=== PATIENT | male | born 1950 | race African-American/Black ===

== ENCOUNTER 2017-06-12 19:11 | Inpatient (IN) | payer MEDICARE, MEDICAID ==
[~2017-06-12] VITALS: Ht 152.4 cm; Wt 89.4 kg
[2017-06-12] MEDS ORDERED: ASPIRIN 81MG TABLET PO STA (21:41)
[2017-06-12] MEDS ORDERED: NITROGLYCERIN 0.4MG TABLET SL SL PRN (21:45)
[2017-06-12 23:06] LABS: BASOPHILS % 0.9 % (0.0-2.0); EOSINOPHILS % 6.6 % (0.0-5.0); HEMATOCRIT. 39.1 % (42.0-52.0); HEMOGLOBIN. 13.1 g/dL (14.0-18.0); LYMPHOCYTES % 37.1 % (20.0-50.0); MEAN CORPUSCULAR HEMOGLOBIN 32.3 pg (28.0-32.0); MEAN CORPUSCULAR VOLUME 96.7 fL (80.0-94.0); MEAN PLATELET VOLUME 8.9 fl (7.4-10.4); MONOCYTES % 7.2 % (2.0-8.0); NEUTROPHILS % 48.2 % (40.0-76.0); PLATELET 143 x1000/uL (130-400); RED BLOOD CELL COUNT 4.05 mill/uL (4.7-6.1); RED CELL DISTRIBUTION WIDTH 14.5 % (11.6-14.6)
[2017-06-12 23:14] LABS: CHLORIDE 107 mEq/L (98-107)
[2017-06-12 23:18] LABS: D-DIMER 0.26 mg/L FEU (<0.50); PARTIAL THROMBOPLASTIN TIME 26.5 sec (23.4-31.0); PROTHROMBIN TIME 10.8 sec (9.4-11.6)
[2017-06-12 23:23] LABS: TROPONIN I < 0.02 ng/mL (0.00-0.04)
[2017-06-13] MEDS ORDERED: IOHEXOL-350 100 ML BOTTLE ONE (02:19)
[2017-06-13 03:00] VITALS: BP 137/70
[2017-06-13] MEDS ORDERED: CARI350T PO (05:09)
[2017-06-13] MEDS ORDERED: APIX5TAB PO (05:09)
[2017-06-13] MEDS ORDERED: CARV12.545 PO (05:09)
[2017-06-13] MEDS ORDERED: HYDR-4001 PO (05:09)
[2017-06-13] MEDS ORDERED: AMLO10TA80 PO (05:09)
[2017-06-13] MEDS ORDERED: OMEPRAZOLE 20MG CAPSULE EXTENDED RELEASE PO SCH (07:10)
[2017-06-13] MEDS ORDERED: ONDANSETRON HCL 4MG/2ML VIAL IV PRN (07:15)
[2017-06-13] MEDS ORDERED: MORPHINE SULFATE 4 MG/ML CPJ (NOT FOR IM USE) IV PRN (07:15)
[2017-06-13 08:00] VITALS: BP 147/90
[2017-06-13] MEDS ORDERED: ENOXAPARIN 40MG/0.4ML SYR SUBCUT SCH (09:00)
[2017-06-13] MEDS ORDERED: CARVEDILOL 12.5MG TABLET PO SCH (09:30)
[2017-06-13] MEDS ORDERED: AMLODIPINE 10MG TABLET PO SCH (09:45)
[2017-06-13 11:08] LABS: BASOPHILS % 0.6 % (0.0-2.0); EOSINOPHILS % 7.5 % (0.0-5.0); HEMATOCRIT. 41.2 % (42.0-52.0); HEMOGLOBIN. 13.7 g/dL (14.0-18.0); LYMPHOCYTES % 33.3 % (20.0-50.0); MEAN CORPUSCULAR HEMOGLOBIN 32.5 pg (28.0-32.0); MEAN CORPUSCULAR VOLUME 97.6 fL (80.0-94.0); MEAN PLATELET VOLUME 9.4 fl (7.4-10.4); MONOCYTES % 6.3 % (2.0-8.0); NEUTROPHILS % 52.3 % (40.0-76.0); PLATELET 142 x1000/uL (130-400); RED BLOOD CELL COUNT 4.22 mill/uL (4.7-6.1); RED CELL DISTRIBUTION WIDTH 14.4 % (11.6-14.6)
[2017-06-13 11:22] LABS: CHLORIDE 106 mEq/L (98-107)
[2017-06-13 11:33] LABS: CREATINE KINASE 286 IU/L (39-308); CREATINE KINASE MB FRACTION 6.6 ng/mL (0.5-3.6); TROPONIN I < 0.02 ng/mL (0.00-0.04)
[2017-06-13] MEDS ORDERED: APIXABAN 5 MG TABLET PO SCH (17:00)
== END 2017-06-13 11:15 | disposition left against medical advice (07) | DRG 300 ==
LOC: ER 20:09 → EDBEDREQ 06-13 00:14 → EDBEDREQTM 06-13 00:14 → 8WST 06-13 00:14 → ENRESERV 06-13 02:33
PROVIDERS: ADMIT Family Medicine Adult Medicine; ATTEND Family Medicine Adult Medicine
DX: I82.492 Acute embolism and thrombosis of other specified deep vein of left lower extremity (principal); I24.9 Acute ischemic heart disease, unspecified; I11.9 Hypertensive heart disease without heart failure; F17.210 Nicotine dependence, cigarettes, uncomplicated; R07.89 Other chest pain; Z96.659 Presence of unspecified artificial knee joint; I51.7 Cardiomegaly
CPT/HCPCS: 36415; 71045; 71275; 80048; 80053; 80061; 82550; 82553; 83735; 83880; 84443; 84484; 85025; 85379; 85610; 85730; 93005; 93970; 99285; J1650; J2270; Q9967

== ENCOUNTER 2018-08-16 19:42 | Emergency (ER) | payer MEDICARE, MEDICAID ==
[~2018-08-16] VITALS: Ht 170.2 cm; Wt 84.0 kg
[~2018-08-16 19:42] MED LIST: AMLO10TA80 PO; APIX5TAB PO; CARV12.545 PO; DIAZ10TA MT; HYDR-4001 PO; S350 PO
[2018-08-16] MEDS ORDERED: ALBUTEROL (0.083%) 2.5MG/3ML NEB HHN STA (21:13)
[2018-08-16] MEDS ORDERED: IPRATROPIUM BROMIDE (0.02%) 0.5MG/2.5ML NEB HHN STA (21:13)
[2018-08-16] MEDS ORDERED: DEXAMETHASONE 10 MG/ML VIAL IM ONE (21:15)
[2018-08-17 01:30] VITALS: BP 130/83
== END 2018-08-17 02:21 | disposition home or self-care (01) ==
LOC: ER 19:42
DX: J98.01 Acute bronchospasm (principal); I10 Essential (primary) hypertension; F32.9 Major depressive disorder, single episode, unspecified; F17.210 Nicotine dependence, cigarettes, uncomplicated; Z96.659 Presence of unspecified artificial knee joint; Z71.6 Tobacco abuse counseling
CPT/HCPCS: 71045; 93005; 94640; 96372; 99283; 99406; J1100; J7611

== ENCOUNTER 2018-08-17 02:31 | Emergency (ER) | payer MEDICARE, MEDICAID ==
[~2018-08-17] VITALS: Ht 175.3 cm; Wt 99.0 kg
[2018-08-17] MEDS ORDERED: ACETAMINOPHEN 325MG TABLET PO ONE (04:15)
[2018-08-17] MEDS ORDERED: ALBUTEROL (0.083%) 2.5MG/3ML NEB HHN STA ×2 (05:18)
[2018-08-17] MEDS ORDERED: IPRATROPIUM BROMIDE (0.02%) 0.5MG/2.5ML NEB HHN STA ×2 (05:18)
[2018-08-17 05:30] VITALS: BP 128/84
== END 2018-08-17 06:11 | disposition home or self-care (01) ==
LOC: ER 02:31
DX: M79.604 Pain in right leg (principal); J44.9 Chronic obstructive pulmonary disease, unspecified; F32.9 Major depressive disorder, single episode, unspecified; I10 Essential (primary) hypertension; Z96.653 Presence of artificial knee joint, bilateral; Z86.718 Personal history of other venous thrombosis and embolism; Z79.01 Long term (current) use of anticoagulants
CPT/HCPCS: 93971; 99284; J7611

== ENCOUNTER 2018-08-24 22:31 | Emergency (ER) | payer MEDICARE, MEDICAID ==
[~2018-08-24] VITALS: Ht 172.7 cm; Wt 100.0 kg
[2018-08-24] MEDS ORDERED: ALBUTEROL (0.083%) 2.5MG/3ML NEB HHN STA (23:28)
[2018-08-24] MEDS ORDERED: PREDNISONE 20MG TABLET PO STA (23:28)
[2018-08-24] MEDS ORDERED: IPRATROPIUM BROMIDE (0.02%) 0.5MG/2.5ML NEB HHN STA (23:28)
[2018-08-24] MEDS ORDERED: HYDROCODONE/ACETAMINOPHEN 5/325MG TABLET PO ONE (23:30)
[2018-08-25 03:22] VITALS: BP 121/64
== END 2018-08-25 04:58 | disposition home or self-care (01) ==
LOC: ER 22:31
DX: J44.1 Chronic obstructive pulmonary disease with (acute) exacerbation (principal); F12.10 Cannabis abuse, uncomplicated; I10 Essential (primary) hypertension; F32.9 Major depressive disorder, single episode, unspecified; F17.290 Nicotine dependence, other tobacco product, uncomplicated; Z79.899 Other long term (current) drug therapy; Z86.718 Personal history of other venous thrombosis and embolism; Z96.659 Presence of unspecified artificial knee joint
CPT/HCPCS: 93005; 94640; 99284; 99406; J7512; J7611

== ENCOUNTER 2018-10-17 11:10 | Emergency (ER) | payer BC, MEDICAID ==
[~2018-10-17] VITALS: Ht 175.3 cm; Wt 96.0 kg
[2018-10-17] MEDS ORDERED: HYDROCODONE/ACETAMINOPHEN 5/325MG TABLET PO ONE (12:45)
[2018-10-17 13:22] LABS: CLARITY URINE CLEAR (CLEAR); COLOR URINE YELLOW (YELLOW); KETONES URINE NEGATIVE (NEGATIVE); LEUKOCYTE ESTERASE URINE NEGATIVE (NEGATIVE); NITRITE URINE NEGATIVE (NEGATIVE); OCCULT BLOOD URINE NEGATIVE (NEGATIVE); PROTEIN URINE NEGATIVE (NEGATIVE); SPECIFIC GRAVITY URINE 1.027 (1.005-1.030)
[2018-10-17] MEDS ORDERED: ALBUTEROL (0.083%) 2.5MG/3ML NEB HHN STA (13:42)
[2018-10-17] MEDS ORDERED: AZITHROMYCIN 500 MG TABLET PO STA (13:42)
[2018-10-17] MEDS ORDERED: PREDNISONE 20MG TABLET PO STA (13:42)
[2018-10-17] MEDS ORDERED: IPRATROPIUM BROMIDE (0.02%) 0.5MG/2.5ML NEB HHN STA (13:42)
[2018-10-17 14:42] LABS: BASOPHILS % 1.3 % (0.0-2.0); EOSINOPHILS % 9.1 % (0.0-5.0); HEMOGLOBIN. 14.7 g/dL (14.0-18.0); LYMPHOCYTES % 35.8 % (20.0-50.0); MEAN CORPUSCULAR HEMOGLOBIN 31.4 pg (28.0-32.0); MEAN CORPUSCULAR VOLUME 94.3 fL (80.0-94.0); MEAN PLATELET VOLUME 9.6 fl (7.4-10.4); MONOCYTES % 7.3 % (2.0-8.0); NEUTROPHILS % 46.5 % (40.0-76.0); PLATELET 121 x1000/uL (130-400); RED BLOOD CELL COUNT 4.67 mill/uL (4.7-6.1); RED CELL DISTRIBUTION WIDTH 14.8 % (11.6-14.6)
[2018-10-17 14:48] LABS: CHLORIDE 105 mEq/L (98-107)
[2018-10-17 14:49] LABS: INR 1.1; PROTHROMBIN TIME 11.2 sec (9.6-11.0)
[2018-10-17 16:10] VITALS: BP 114/75
== END 2018-10-17 16:44 | disposition home or self-care (01) ==
LOC: ER 11:10
DX: J44.1 Chronic obstructive pulmonary disease with (acute) exacerbation (principal); M25.551 Pain in right hip; I10 Essential (primary) hypertension; F32.9 Major depressive disorder, single episode, unspecified; Z86.718 Personal history of other venous thrombosis and embolism; Z96.659 Presence of unspecified artificial knee joint
CPT/HCPCS: 36415; 71045; 73502; 80053; 81003; 85025; 85610; 94640; 99284; J7512; J7611

== ENCOUNTER 2019-05-03 18:25 | Emergency (ER) | payer MEDICARE, MEDICAID ==
[~2019-05-03] VITALS: Ht 182.9 cm; Wt 100.0 kg
[~2019-05-03 18:25] MED LIST changes: +CARI350T28 PO; -S350 PO
[2019-05-03] MEDS ORDERED: ONDANSETRON HCL 4MG/2ML INJ IV STA (19:13)
[2019-05-03] MEDS ORDERED: NALOXONE HCL 0.4 MG/ML 1ML VIAL IV ONE (19:15)
[2019-05-03 19:30] VITALS: BP 144/95
[2019-05-03 19:33] LABS: BASOPHILS % 0.5 % (0.0-2.0); EOSINOPHILS % 7.7 % (0.0-5.0); HEMATOCRIT. 41.7 % (42.0-52.0); HEMOGLOBIN. 13.6 g/dL (14.0-18.0); LYMPHOCYTES % 49.5 % (20.0-50.0); MEAN CORPUSCULAR HEMOGLOBIN 30.4 pg (28.0-32.0); MEAN CORPUSCULAR VOLUME 93.5 fL (80.0-94.0); MEAN PLATELET VOLUME 9.2 fl (7.4-10.4); MONOCYTES % 6.8 % (2.0-8.0); NEUTROPHILS % 35.5 % (40.0-76.0); PLATELET 149 x1000/uL (130-400); RED BLOOD CELL COUNT 4.46 mill/uL (4.7-6.1); RED CELL DISTRIBUTION WIDTH 16.7 % (11.6-14.6)
[2019-05-03 19:37] LABS: CHLORIDE 106 mEq/L (98-107)
[2019-05-03 19:42] LABS: ETHANOL BLOOD 65 mg/dL
== END 2019-05-03 22:28 | disposition home or self-care (01) ==
LOC: ER 18:25
DX: T40.601A Poisoning by unspecified narcotics, accidental (unintentional), initial encounter (principal); F10.129 Alcohol abuse with intoxication, unspecified; R41.82 Altered mental status, unspecified; Y90.3 Blood alcohol level of 60-79 mg/100 ml; I10 Essential (primary) hypertension; F12.10 Cannabis abuse, uncomplicated; F32.9 Major depressive disorder, single episode, unspecified; Z86.718 Personal history of other venous thrombosis and embolism; Z79.01 Long term (current) use of anticoagulants; Z96.659 Presence of unspecified artificial knee joint; Y92.488 Other paved roadways as the place of occurrence of the external cause
CPT/HCPCS: 36415; 80053; 80320; 82962; 84484; 85025; 93005; 99284; G0480